=== PATIENT | female | born 2005 | race Caucasian/White ===

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

== ENCOUNTER 2023-05-24 17:59 | Emergency (ER) | payer OTHER, SELFPAY ==
[2023-05-24 18:00] VITALS: BP 124/76; PULSE 64; RESP 14; TEMP 36.4; O2SAT 99
[2023-05-24 18:08] VITALS: BMI 39.5
--- NOTE | 2023-05-24 18:15 | EDS_ITS ---
HPI History of Present Illness Chief Complaint: Back Narrative Narrative: 18-year-old female presenting with lower back pain since yesterday. She states she was on a long flight and then when she got off she tried to pick up operator her cat carrier and felt a twinge in her lower back and is progressed over the course of today. She states that it radiates to the bilateral legs. She is having trouble getting up and walking secondary to pain. She is taking Naprosyn but does not seem to be helping today. Denies loss of bladder or bowel control. Denies saddle anesthesia/paresthesia. No direct trauma to the back. PFSH PFS Medical History no medical history Home Medications norgestimate-ethinyl estradiol 0.18 mg/0.215mg/0.25mg-35 mcg(28)tablet 1 tab PO DAILY 05/24/23 [History Last Taken Unknown] Allergy/AdvReac Type Severity Reaction Status Date / Time No Known Allergies Allergy Verified 05/24/23 17:59 Family History no significant family his Surgical History no surgical history Social History Smoking Status: Never smoker ROS ROS ED Constitutional Constitutional ED: Denies chills, fever(s) or sweats Eyes Eyes: Denies blurry vision or change in vision ENT ENT ED: Denies ear pain or sore throat Cardiovascular Cardiovascular: Denies chest pain, palpitations or racing heartbeat Respiratory/Chest Respiratory/Chest: Denies cough, dyspnea or sputum Gastrointestinal Gastrointestinal: Denies abdominal pain, constipation, diarrhea, nausea or vomiting Genitourinary Genitourinary ED: Denies dysuria, hematuria or urinary frequency Musculoskeletal Musculoskeletal: Reports back pain; Denies arthralgias or myalgias Integumentary Denies abscess, Abrasions or rash Neurologic Neurologic: Denies headache(s), paresthesias or weakness Psychiatric Psychiatric: Denies anxiety, depression, suicidal ideation or suicidal thoughts Endocrine Endocrinology: Denies polydipsia or polyuria EXAM Physical Exam Const Vital Signs: 05/24/23 18:00 Temperature 97.6 F L Temperature Source Temporal Pulse Rate 64 Respiratory Rate 14 Blood Pressure 124/76 H Blood Pressure Mean 92 Pulse Ox 99 Oxygen Delivery Method Room Air Positive well nourished General Appearance ED: NAD; Negative for pallor HEENT Reports moist mucous membranes Eyes PERRL and EOMs intact bilaterally Resp normal respiratory effort Back/Spine Back/Spine Narrative: Tenderness to palpation in lower lumbar area bilaterally. No midline deformities or step-offs. Neuro oriented x3 and no sensory deficits noted Motor Exam: strength 5/5 throughout Skin no rashes or lesions noted General Skin Exam: Negative for jaundice or pallor MDM MDM MDM Narrative Medical decision making narrative: Patient with back pain. No evidence of cauda equina syndrome or infectious etiology. Patient medicated with Norflex, Toradol, lidocaine patch and 60 mg of prednisone. X-ray of the lumbar spine will be obtained. Patient reevaluated at 8:11 PM and she feels better. She still having some pain. I will give her a short prednisone and muscle relaxers. She also requested Lidoderm patches because they seem to help. ED. X-ray lumbar spine on my interpretation shows no acute process. The radiologist interprets this and agrees. Impression: 1. Lumbar strain Radiography Diagnostic Testing: Clinical Impression(s) from Imaging Studies Lumbar Spine X-Ray 05/24/23 18:32 IMPRESSION: Normal x-ray examination of the lumbar spine. Electronically Signed: Darnell Vasques MD at 19:45 EDT , Discharge Plan Triage Chief Complaint: Back ED Provider: Shahriar Barraza Dx/Rx/DC Orders Prescriptions: No Action norgestimate-ethinyl estradiol 0.18/0.215/0.25 mg-35 mcg (28) tablet 1 tab PO DAILY Patient Comments: TAKE 1 TABLET BY MOUTH EVERY DAY Primary Care Provider: Matt Wells Referrals: Matt eWlls MD [Primary Care Provider] -
[2023-05-24] MEDS: Lidocaine 5% Patch 1 PATCH TOPICAL (18:19)
[2023-05-24] MEDS: Orphenadrine 60 MG/2 ML Ampul IM (18:19)
[2023-05-24] MEDS: predniSONE 20 MG Tablet 60 MG PO (18:19)
[2023-05-24] MEDS: Ketorolac 10 MG Tablet PO (18:19)
--- NOTE | 2023-05-24 18:32 | RAD_ITS ---
STUDY: X-RAY - LUMBAR SPINE REASON FOR EXAM: Female, 18 years old. back pain TECHNIQUE: 3 view(s) of the lumbar spine were obtained. COMPARISON: None FINDINGS: Normal lumbar lordosis. There is no substantial scoliosis. There is a normal alignment of the vertebrae. Normal vertebral bodies and endplates. Normal disc space heights. The soft tissue structures are unremarkable. RAD/Lumbar Spine 2 or 3 Views IMPRESSION: Normal x-ray examination of the lumbar spine. Electronically Signed: Darnell Vasques MD at 19:45 EDT ,
[2023-05-24 20:20] VITALS: RESP 18
== END 2023-05-24 20:37 | disposition home or self-care (01) ==
PROVIDERS: Emergency Provider Student in an Organized Health Care Education/Training Program; PCP Pediatrics; Visit Provider Student in an Organized Health Care Education/Training Program
DX: S39.012A Strain of muscle, fascia and tendon of lower back, initial encounter (principal); X58.XXXA Exposure to other specified factors, initial encounter
CPT/HCPCS: 72100; 96372; 99284